=== PATIENT | female | born 1965 ===

== ENCOUNTER 2019-09-17 11:04 | Emergency (ER) | payer BC ==
--- NOTE | 2019-09-17 12:30 | RAD REPORT ---
EXAM DESCRIPTION: US - Extremity Venous Uni Ltd - 09/17/2019 12:24 pm CLINICAL HISTORY: PAIN Leg swelling and edema. COMPARISON: No comparisons FINDINGS: Right lower extremity venous system was interrogated with Doppler technique. Normal flow, compressibility and augmentation was noted. There is no DVT present. IMPRESSION: No evidence of right lower extremity deep venous thrombosis.
--- NOTE | 2019-09-17 12:38 | ER ---
Nurse's Notes [facility] Name: Pierce Garibay Age: 54 yrs Sex: Female : 1965 Arrival Date: 09/17/2019 Time: 11:07 Bed 27 Private MD: Diagnosis: Pain in right lower leg Presentation: 09/17 11:08 Presenting complaint: Patient states: Right leg pain and swelling that started aj1 yesterday. Reports that she can't bend her knee because of the pain. Patient states that she is here on vacation, they drove here from [place]. Denies any recent injury to her right leg. Transition of care: patient was not received from another setting of care. Onset of symptoms was August 2019. Risk Assessment: Do you want to hurt yourself or someone else? Patient reports no desire to harm self or others. Initial Sepsis Screen: Does the patient meet any 2 criteria? No. Patient's initial sepsis screen is negative. Does the patient have a suspected source of infection? No. Patient's initial sepsis screen is negative. Care prior to arrival: None. 11:08 Method Of Arrival: Ambulatory aj1 11:08 Acuity: LASHELL 3 aj1 Triage Assessment: 11:11 General: Appears in no apparent distress. uncomfortable, Behavior is calm, cooperative, aj1 agitated. Pain: Complains of pain in right knee. EENT: No signs and/or symptoms were reported regarding the EENT system. Neuro: Level of Consciousness is awake, alert, obeys commands. Cardiovascular: Patient's skin is warm and dry. Respiratory: Airway is patent Respiratory effort is even, unlabored, Respiratory pattern is regular, symmetrical. GI: No signs and/or symptoms were reported involving the gastrointestinal system. : No signs and/or symptoms were reported regarding the genitourinary system. Derm: Skin is pink, warm \T\ dry. normal. Musculoskeletal: Range of motion: limited in right knee Swelling present in right knee. Historical: - Allergies: 11:11 No Known Allergies; aj1 - Home Meds: 11:11 None [Active]; aj1 - PMHx: 11:11 None; aj1 - PSHx: 11:11 Hysterectomy; aj1 - Immunization history:: Adult Immunizations up to date. - Coronavirus screen:: The patient has NOT traveled to [place], [place], or [place] in the past 14 days. - Social history:: Smoking status: Patient/guardian denies using tobacco. - Ebola Screening: : Patient denies travel to an Ebola-affected area in the 21 days before illness onset. Screenin:12 Abuse screen: Denies threats or abuse. Denies injuries from another. Nutritional aj1 screening: No deficits noted. Tuberculosis screening: No symptoms or risk factors identified. 12:55 Fall Risk None identified. aj1 Assessment: 11:12 Reassessment: see triage assessment. aj1 12:15 Reassessment: Patient appears in no apparent distress at this time. No changes from aj1 previously documented assessment. Patient and/or family updated on plan of care and expected duration. Pain level reassessed. Patient is alert, oriented x 3, equal unlabored respirations, skin warm/dry/pink. Vital Signs: 11:11 BP 146 / 71; Pulse 66; Resp 18; Temp 97.8; Pulse Ox 100% on R/A; Weight 79.38 kg (R); aj1 Height 5 ft. 0 in. (152.40 cm); Pain 8/10; 12:29 BP 106 / 58; Pulse 63; Resp 16; Pulse Ox 100% on R/A; aj1 11:11 Body Mass Index 34.18 (79.38 kg, 152.40 cm) aj1 ED Course: 11:07 Patient arrived in ED. es 11:10 Triage completed. aj1 11:11 Aarti Iraheta [facility]NP-C [facility]. kb 11:11 Joel Wen MD is Attending Physician. kb 11:11 Arm band placed on Patient placed in an exam room. aj1 11:12 Patient has correct armband on for positive identification. Bed in low position. Call aj1 light in reach. 11:12 No provider procedures requiring assistance completed. aj1 12:22 Ely Harmon RN is Primary Nurse. aj1 12:24 Ultrasound completed. Patient tolerated well. sg3 12:25 US Extremity Venous Unilateral Ltd In Process Unspecified. EDMS 12:55 Patient did not have IV access during this emergency room visit. aj1 Administered Medications: No medications were administered Outcome: 12:38 Discharge ordered by . kb 12:55 Discharged to home ambulatory. aj1 12:55 Condition: good 12:55 Discharge instructions given to patient, Instructed on discharge instructions, follow up and referral plans. medication usage, Demonstrated understanding of instructions, follow-up care, medications, Prescriptions given X 1. 12:56 Patient left the ED. aj1 Signatures: Dispatcher [employer] Aarti Matias, DISTRICT BRANCH MANAGER-C ISELA-Ely Wilson, RN RN aj1 Melida Middleton Sarah 3
--- NOTE | 2019-09-17 12:39 | EDPHYS ---
Physician Documentation [facility] Name: Pierce Garibay Age: 54 yrs Sex: Female : 1965 Arrival Date: 09/17/2019 Time: 11:07 Bed 27 Private MD: ED Physician Joel Wen HPI: 09/17 11:36 This 54 yrs old Female presents to ER via Ambulatory with complaints of Leg Pain. kb 11:36 The patient presents with pain, that is acute, swelling. The complaints affect the kb right calf and posterior aspect of right knee. Context: The problem was sustained at home, resulted from an unknown cause, the patient can fully bear weight, the patient is able to ambulate, Problem is a result from a previous injury: No. Onset: The symptoms/episode began/occurred yesterday. Modifying factors: The symptoms are alleviated by nothing. the symptoms are aggravated by weight bearing, bending knee. Associated signs and symptoms: Pertinent positives: swelling. Treatment prior to arrival includes: no previous treatment. Severity of symptoms: At their worst the symptoms were moderate, in the emergency department the symptoms are unchanged. The patient has not experienced similar symptoms in the past. The patient has not recently seen a physician. Pt reports pain and swelling that started yesterday. REports sudden onset, denies injury or trauma. Has been traveling in a recently for a long distance. Historical: - Allergies: 11:11 No Known Allergies; aj1 - Home Meds: 11:11 None [Active]; aj1 - PMHx: 11:11 None; aj1 - PSHx: 11:11 Hysterectomy; aj1 - Immunization history:: Adult Immunizations up to date. - Coronavirus screen:: The patient has NOT traveled to [place], [place], or [place] in the past 14 days. - Social history:: Smoking status: Patient/guardian denies using tobacco. - Ebola Screening: : Patient denies travel to an Ebola-affected area in the 21 days before illness onset. ROS: 11:35 Constitutional: Negative for fever, chills, and weight loss, Cardiovascular: Negative kb for chest pain, palpitations, and edema, Respiratory: Negative for shortness of breath, cough, wheezing, and pleuritic chest pain, Abdomen/GI: Negative for abdominal pain, nausea, vomiting, diarrhea, and constipation, Back: Negative for injury and pain, Skin: Negative for injury, rash, and discoloration, Neuro: Negative for headache, weakness, numbness, tingling, and seizure. 11:35 MS/extremity: Positive for pain, swelling, tenderness, of the posterior aspect of right knee and right calf. Exam: 11:35 Constitutional: This is a well developed, well nourished patient who is awake, alert, kb and in no acute distress. Head/Face: Normocephalic, atraumatic. Neck: Trachea midline, no thyromegaly or masses palpated, and no cervical lymphadenopathy. Supple, full range of motion without nuchal rigidity, or vertebral point tenderness. No Meningismus. Chest/axilla: Normal chest wall appearance and motion. Nontender with no deformity. No lesions are appreciated. Cardiovascular: Regular rate and rhythm with a normal S1 and S2. No gallops, murmurs, or rubs. Normal PMI, no JVD. No pulse deficits. Respiratory: Lungs have equal breath sounds bilaterally, clear to auscultation and percussion. No rales, rhonchi or wheezes noted. No increased work of breathing, no retractions or nasal flaring. Abdomen/GI: Soft, non-tender, with normal bowel sounds. No distension or tympany. No guarding or rebound. No evidence of tenderness throughout. Skin: Warm, dry with normal turgor. Normal color with no rashes, no lesions, and no evidence of cellulitis. Neuro: Awake and alert, GCS 15, oriented to person, place, time, and situation. Cranial nerves II-XII grossly intact. Motor strength 5/5 in all extremities. Sensory grossly intact. Cerebellar exam normal. Normal gait. 11:35 Musculoskeletal/extremity: Extremities: grossly normal except: noted in the right calf and posterior aspect of right knee: decreased ROM, pain, swelling, ROM: limited active range of motion due to pain, in the right knee, Circulation is intact in all extremities. Sensation intact. Weight bearing: able to fully bear weight. Vital Signs: 11:11 BP 146 / 71; Pulse 66; Resp 18; Temp 97.8; Pulse Ox 100% on R/A; Weight 79.38 kg (R); aj1 Height 5 ft. 0 in. (152.40 cm); Pain 8/10; 12:29 BP 106 / 58; Pulse 63; Resp 16; Pulse Ox 100% on R/A; aj1 11:11 Body Mass Index 34.18 (79.38 kg, 152.40 cm) aj1 MDM: 11:16 Patient medically screened. kb 11:34 Data reviewed: vital signs, nurses notes. Data interpreted: Pulse oximetry: on room air kb is 100 %. Interpretation: normal. 12:38 Counseling: I had a detailed discussion with the patient and/or guardian regarding: the kb historical points, exam findings, and any diagnostic results supporting the discharge/admit diagnosis, radiology results, the need for outpatient follow up, a family practitioner, to return to the emergency department if symptoms worsen or persist or if there are any questions or concerns that arise at home. 09/17 11:11 Order name: US Extremity Venous Unilateral Ltd; Complete Time: 12:31 kb Administered Medications: No medications were administered Disposition: 16:31 Co-signature as Attending Physician, Joel Wen MD I agree with the assessment and kdr plan of care. Disposition: 09/17/19 12:38 Discharged to Home. Impression: Pain in right lower leg. - Condition is Stable. - Discharge Instructions: Musculoskeletal Pain, Muscle Strain, [id number]. - Prescriptions for Cyclobenzaprine 10 mg Oral Tablet - take 1 tablet by ORAL route every 8 hours As needed; 15 tablet. - Medication Reconciliation Form, Thank You Letter, Antibiotic Education, Prescription Opioid Use form. - Follow up: Emergency Department; When: As needed; Reason: Worsening of condition. Follow up: Private Physician; When: 2 - 3 days; Reason: Recheck today's complaints, Continuance of care, Re-evaluation by your physician. Signatures: Dispatcher [employer] Arati Matisa, CLIENT HR MANAGER-C CLIENT HR MANAGER-Ckb Ely Harmon RN RN aj1 Joel Wen MD MD [facility] Corrections: (The following items were deleted from the chart) 12:56 12:38 09/17/2019 12:38 Discharged to Home. Impression: Pain in right lower leg. aj1 Condition is Stable. Forms are Medication Reconciliation Form, Thank You Letter, Antibiotic Education, Prescription Opioid Use. Follow up: Emergency Department; When: As needed; Reason: Worsening of condition. Follow up: Private Physician; When: 2 - 3 days; Reason: Recheck today's complaints, Continuance of care, Re-evaluation by your physician. kb
[2019-09-17 13:13] VITALS: TEMP 97.8; O2SAT 100
[2019-09-17 13:14] VITALS: BP 106/58
== END 2019-09-17 12:56 | disposition home or self-care (01) ==
LOC: ER 11:04
DX: M79.661 Pain in right lower leg (principal)
CPT/HCPCS: 93971; 99283